=== PATIENT | female | born 1955 | race Caucasian/White ===

== ENCOUNTER 2017-04-10 06:16 | Observation (INO) | payer BC ==
[2017-04-05 09:33] VITALS: BP 142/93
[~2017-04-10] VITALS: Ht 165.1 cm; Wt 76.6 kg
[~2017-04-10 06:16] MED LIST: ATEN-103 PO; CETI10CA PO; CHOL20003 PO; CITA10TA8 PO; FEXO1TAB25 PO; FISH1CAP PO; LEVO100T PO; MAGN1TAB PO; METO5TAB57 PO; SIMV40TA PO
[2017-04-10] MEDS ORDERED: LACTATED RINGERS 1,000 ML IV SCH (06:42)
[2017-04-10] MEDS ORDERED: FENTANYL PF 250 MCG/5ML ONE (06:46)
[2017-04-10] MEDS ORDERED: MIDAZOLAM 1 MG/ML, 2ML ONE (06:46)
[2017-04-10] MEDS ORDERED: SCOPOLAMINE PATCH, 1.5MG PATCH.TD72 TD ONE (06:48)
[2017-04-10] MEDS ORDERED: BUPIVACAINE/PF-EPI 0.5% 1:200K ONE (06:52)
[2017-04-10] MEDS ORDERED: MEPERIDINE/PF 25MG/0.5ML IVPush PRN (07:00)
[2017-04-10] MEDS ORDERED: ALBUTEROL SULFATE 2.5 MG/3 ML NPPB PRN (07:00)
[2017-04-10] MEDS ORDERED: METOPROLOL 1 MG/ML, 5ML IV PRN (07:00)
[2017-04-10] MEDS ORDERED: OXYcodone 5 MG/5 ML ORAL.SOL UDC PO PRN (07:00)
[2017-04-10] MEDS ORDERED: LABETALOL 5MG/ML, 20ML IV PRN (07:00)
[2017-04-10] MEDS ORDERED: HYDROmorphone 1 MG/ML, 1ML IV PRN (07:00)
[2017-04-10] MEDS ORDERED: ONDANSETRON 2MG/ML, 2ML IVPush PRN ×2 (07:00→09:00)
[2017-04-10] MEDS ORDERED: ACETAMINOPHEN 325 MG TABLET PO PRN (07:00)
[2017-04-10] MEDS ORDERED: EPHEDRINE 50 MG/ML, 1ML IVPush PRN (07:00)
[2017-04-10] MEDS ORDERED: hydrALAzine 20 MG/ML, 1ML IV PRN ×2 (07:00→09:00)
[2017-04-10] MEDS ORDERED: PROPOFOL 10 MG/ML, 20ML ONE (07:24)
[2017-04-10] MEDS ORDERED: DEXAMETHASONE 4 MG/ML, 1ML ONE (07:24)
[2017-04-10] MEDS ORDERED: PROPOFOL 10 MG/ML, 50ML ONE (07:24)
[2017-04-10] MEDS ORDERED: ONDANSETRON 2MG/ML, 2ML ONE (07:24)
[2017-04-10] MEDS ORDERED: SUCCINYLCHOLINE 20 MG/ML, 10ML ONE (07:24)
[2017-04-10] MEDS ORDERED: METOCLOPRAMIDE 5 MG/ML, 2ML ONE (07:24)
[2017-04-10] MEDS ORDERED: ROCURONIUM 10 MG/ML ONE (07:24)
[2017-04-10] MEDS ORDERED: GLYCOPYRROLATE 0.2MG/1ML ONE (07:24)
[2017-04-10] MEDS ORDERED: CEFOTETAN 2 GM ONE (07:24)
[2017-04-10] MEDS ORDERED: NEOSTIGMINE 1 MG/ML, 10ML ONE (07:24)
[2017-04-10] MEDS ORDERED: FENTANYL PF 100 MCG/2ML ONE (08:54)
[2017-04-10] MEDS ORDERED: OXYcodone 5 MG/5 ML ORAL.SOL UDC ONE (08:55)
[2017-04-10] MEDS ORDERED: KETOROLAC 30 MG/1 ML ONE (08:56)
[2017-04-10] MEDS ORDERED: morphine SULFATE 10 MG/ML, 1ML IV PRN (09:00)
[2017-04-10] MEDS ORDERED: LORazepam 2 MG/ML, 1ML IV PRN (09:00)
[2017-04-10] MEDS ORDERED: PROMETHAZINE 12.5 MG SUPP PR PRN (09:00)
[2017-04-10] MEDS ORDERED: PROMETHAZINE 25 MG/ML, 1ML IM PRN (09:00)
[2017-04-10] MEDS ORDERED: ENALAPRILAT 1.25 MG/ML, 2ML IV PRN (09:00)
[2017-04-10] MEDS: FAMOTIDINE 20 MG/2 ML IV SCH ×2 (09:00→20:55)
[2017-04-10] MEDS: ATENOLOL 25 MG TABLET PO SCH (09:00)
[2017-04-10] MEDS: KETOROLAC 30 MG/1 ML IV PRN ×2 (09:00→20:55)
[2017-04-10] MEDS ORDERED: DIPHENHYDRAMINE 50 MG/ML, 1ML IV PRN (09:00)
[2017-04-10] MEDS ORDERED: HYDROcodone/APAP 7.5-325MG/15ML UDC PO PRN (09:00)
[2017-04-10] MEDS: FENTANYL PF 100 MCG/2ML IV PRN ×2 (09:02→09:18)
[2017-04-10] MEDS ORDERED: MEPERIDINE/PF 25MG/0.5ML ONE (09:21)
[2017-04-10] MEDS ORDERED: ACETAMINOPHEN 650 MG/20.3 ML UDC ONE (09:37)
[2017-04-10 10:05] VITALS: BP 125/86
[2017-04-10] MEDS: CEFAZOLIN PMX 2GM/50ML 50 ML IVPB SCH ×2 (12:21→20:55)
[2017-04-10 13:30] VITALS: BP 127/78
[2017-04-10] MEDS: LACTATED RINGERS 1,000 ML IV SCH (16:32)
[2017-04-10 20:02] VITALS: BP 108/65
[2017-04-11] MEDS: LACTATED RINGERS 1,000 ML IV SCH ×2 (00:31→08:05)
[2017-04-11 01:47] VITALS: BP 124/75
[2017-04-11] MEDS ORDERED: LEVOTHYROXINE 100 MCG TABLET PO SCH (06:00)
[2017-04-11] MEDS: KETOROLAC 30 MG/1 ML IV PRN (06:32)
[2017-04-11] MEDS: FAMOTIDINE 20 MG/2 ML IV SCH (08:06)
[2017-04-11 08:08] VITALS: BP 123/72
[2017-04-11] MEDS ORDERED: CITALOPRAM 10 MG TABLET PO SCH (09:00)
[2017-04-11] MEDS: ATENOLOL 25 MG TABLET PO SCH (09:00)
[2017-04-11] MEDS ORDERED: ENOXAPARIN 40 MG/0.4 ML SQ SCH (09:00)
[2017-04-11] MEDS ORDERED: HYDR473S51 PO (11:19)
[2017-04-11] MEDS ORDERED: SIMVASTATIN 40 MG TABLET PO SCH (21:00)
== END 2017-04-11 11:30 | disposition home or self-care (01) ==
LOC: OUT 06:16 → ORIP 08:48 → 4NOR 10:05 → DCLOUNGE 04-11 11:15
PROVIDERS: ADMIT Thoracic Surgery (Cardiothoracic Vascular Surgery); ATTEND Thoracic Surgery (Cardiothoracic Vascular Surgery)
DX: K21.9 Gastro-esophageal reflux disease without esophagitis (principal)
CPT/HCPCS: 43280; 96365; 96372; 96375; 96376; G0378; J0330; J0690; J1100; J1650; J1885; J2175; J2250; J2405; J2704; J2710; J2765; J3010; J7120; 96360; J3490; S0028; S0074